=== PATIENT | male | born 1970 | race Caucasian/White ===

== ENCOUNTER → 2016-04-04 | Outpatient (CLI) | payer OTHER ==
[~2016-04-04] MED LIST: CELEXA10 MG PO; COZAAR 50 MG TA50 M2 PO; ELIQUIS5 MG PO; NICOTINE TRANSD21 M1 TRANSDERM
--- NOTE | ~2016-04-04 | 2DMMODE ---
[facility] [place] [address] 2 D/M-MODE ECHOCARDIOGRAM Name: DIMITRI GONZALEZ Room #: REG CL [facility]#: [id number] Admission: 04/04/16 Attend Phys: Kurtis Sarmiento MD Discharge: Date of : 72 Date of Service: 04/04/16 1024 Report #: [id number] THIS REPORT FOR: //name// Transthoracic Echocardiography Ordering physician: Kurtis Sarmiento Referring physician: Kurtis Sarmiento Emily G. Supervisor Warping Department: Suellen Rebollar Indications/History: Abbreviated echo for follow up of pulmonary embolism 01/2016. Hx: HTN BP: 150 / HR: 70bpm Height: 69in Weight: 269.4lb 90 Study data: M-mode, limited 2D, limited spectral Doppler, and color Doppler. Location: Echo laboratory. Routine. Image quality was adequate. The study was technically limited due to body habitus. 2D measurements Normal Normal LVID ED 56.3mm 36-57 IVS ED 10.5mm 6-11 LVID ES 38.5mm 23-40 LVPW ED 9.3mm 6-11 LA volume index 16-28 AoRoot diam ED 21-37 LVOT diameter 18-23 Findings: Left ventricle: The cavity size was normal. Wall thickness was normal. Systolic function was normal. The estimated ejection fraction was in the range of 55% to 60%. Wall motion was normal. Right ventricle: Difficult to visualize but appears to be at the upper limits of normal in size with normal function. Right atrium: The atrium was at the upper limits of normal in size. Left atrium: The atrium was normal in size. Aortic valve: Structurally normal valve. Doppler: There was no stenosis. No regurgitation. Peak velocity: 144.5cm/s (S). [address] [address] 2 D/M-MODE ECHOCARDIOGRAM Name: DIMITRI GONZALEZ Room #: REG [facility]#: [id number] Admission: 04/04/16 Attend Phys: Kurtis Sarmiento MD Discharge: Date of : 72 Date of Service: 04/04/16 1024 Report #: [id number] Mitral valve: Structurally normal valve. Doppler: There was no evidence for stenosis. Trivial regurgitation. Tricuspid valve: Structurally normal valve. Doppler: There was no evidence for stenosis. Trivial regurgitation. Regurgitant peak velocity: 266cm/s. Peak RV-RA gradient: 28mm Hg (S). Pulmonic valve: Structurally normal valve. Doppler: There was no evidence for stenosis. Trivial regurgitation. Pericardium: There was no pericardial effusion. Pulmonary artery: Systolic pressure was estimated to be 33mm Hg. Systemic veins: Inferior vena cava: The vessel was normal in size; the respirophasic diameter changes were in the normal range (= 50%). Conclusions 1. Left ventricle: The cavity size was normal. Wall thickness was normal. Systolic function was normal. The estimated ejection fraction was in the range of 55% to 60%. Wall motion was normal. 2. Aortic valve: Structurally normal valve. 3. Mitral valve: Structurally normal valve. Trivial regurgitation. 4. Pulmonic valve: Trivial regurgitation. 5. Tricuspid valve: Trivial regurgitation. 6. Pulmonary arteries: Systolic pressure was estimated to be 33mm Hg. <ELECTRONICALLY SIGNED> By: Kristian Camacho MD 04/04/16 1102 1024 1102 Kristian Camacho MD /kelvin
== END ==
LOC: CV 03-28 12:25 → EDSTATUS 03-28 12:28 → CV 03-28 14:27
DX: I26.99 Other pulmonary embolism without acute cor pulmonale (principal); I10 Essential (primary) hypertension

== ENCOUNTER → 2017-05-08 | Outpatient (CLI) | payer OTHER ==
--- NOTE | ~2017-05-08 | 2DMMODE ---
[facility] [address] [address] 2 D/M-MODE ECHOCARDIOGRAM Name: DIMITRI GONZALEZ Room #: REG [facility]#: [id number] Admission: 05/08/17 Attend Phys: Kurtis Sarmiento MD Discharge: Date of : 72 Date of Service: 05/08/17 1012 Report #: [id number] THIS REPORT FOR: //name// APPROVED REPORT Study performed: 05/08/2017 09:10:17 EXAM: Comprehensive 2D, Doppler, and color-flow Echocardiogram Patient Location: Echo lab Status: routine BSA: 2.38 HR: 96 bpm BP: 156/106 mmHg Rhythm: NSR Other Information Study Quality: FairAdequate Risk Factors: Cardiac Risk Factors: HTN Indications Pulmonary Hypertension 2D Dimensions LVEF(%): 51.74 (>50%) IVSd: 11.63 (7-11mm) LVOT Diam: 21.00 (18-24mm) LVDd: 38.86 mm PWd: 12.56 (7-11mm) Ascending Ao: 29.24 (22-36mm) LVDs: 28.75 (25-40mm) Left Atrium: 42.06 (27-40mm) Aortic Root: 30.11 mm Martinez's LVEF: 51.74 % Volumes Left Atrial Volume (Systole) Single Plane 4CH: 35.11 mL Aortic Valve AoV Peak Billy.: 1.13 m/s AO Peak Gr.: 5.11 mmHg LVOT Max P.03 mmHg LVOT Max V: 0.71 m/s PREMA Vmax: 2.20 cm2 [facility] [address] [address] 2 D/M-MODE ECHOCARDIOGRAM Name: DIMITRI GONZALEZ EMY Room #: REG CL [facility]#: [id number] Admission: 05/08/17 Attend Phys: Kurtis Sarmiento MD Discharge: Date of : 72 Date of Service: 05/08/17 1012 Report #: [id number] Mitral Valve E/A Ratio: 0.7 MV Decel. Time: 176.77 ms MV E Max Billy.: 0.48 m/s MV A Billy.: 0.68 m/s MV PHT: 51.26 ms IVRT: 43.83 ms TDI E/Lateral E': 8.00 E/Medial E': 12.00 Medial E' Billy.: 0.04 m/s Lateral E' Billy.: 0.06 m/s Pulmonary Valve PV Peak Billy.: 0.93 m/s PV Peak Gr.: 3.47 mmHg Left Ventricle The left ventricle is normal size. There is normal LV segmental wall motion. Mild concentric left ventricular hypertrophy. Left ventricular systolic function is normal. The left ventricular ejection fraction is within the normal range. LVEF is 55%. Grade I - abnormal relaxation pattern. Right Ventricle The right ventricle is normal size. The right ventricular systolic function is normal. Atria The left atrium size is normal. The right atrium size is normal. Aortic Valve The aortic valve is normal in structure. No aortic regurgitation is present. There is no aortic valvular stenosis. Mitral Valve The mitral valve is normal in structure. There is no mitral valve regurgitation noted. No evidence of mitral valve stenosis. Tricuspid Valve The tricuspid valve is normal in structure. There is no tricuspid valve regurgitation noted. Pulmonic Valve The pulmonary valve is normal in structure. Trace pulmonic regurgitation. [facility] [address] [place] [address] 2 D/M-MODE ECHOCARDIOGRAM Name: CARLOSDIMITRI Room #: REG [facility]#: [id number] Admission: 05/08/17 Attend Phys: Kurtis Sarmiento MD Discharge: Date of : 72 Date of Service: 05/08/17 1012 Report #: [id number] Great Vessels The aortic root is normal in size. The inferior vena cava is not visualized. Pericardium There is no pericardial effusion. <Conclusion> The left ventricle is normal size. LVEF is 55%. The aortic valve is normal in structure. The mitral valve is normal in structure. The tricuspid valve is normal in structure. The pulmonary valve is normal in structure. There is no pericardial effusion. <ELECTRONICALLY SIGNED> By: Kristian Camacho MD 05/08/17 1012 1012 1012 Kristian Camacho MD /INF
== END ==
LOC: CV 04-24 10:11
DX: I27.82 Chronic pulmonary embolism (principal); M79.89 Other specified soft tissue disorders; I27.20 Pulmonary hypertension, unspecified

== ENCOUNTER 2020-12-30 12:24 | Emergency (ER) | payer OTHER ==
[~2020-12-30] VITALS: Ht 175.3 cm; Wt 113.4 kg
[2020-12-30] MEDS ORDERED: ZYRTEC10 M5 PO (12:35)
[2020-12-30] MEDS ORDERED: NORCO5 PO ×2 (13:51→13:53)
[2020-12-30 14:06] VITALS: BP 150/90
== END 2020-12-30 14:06 | disposition home or self-care (01) ==
LOC: ER 12:24
DX: S82.434A Nondisplaced oblique fracture of shaft of right fibula, initial encounter for closed fracture (principal); S82.64XA Nondisplaced fracture of lateral malleolus of right fibula, initial encounter for closed fracture; I10 Essential (primary) hypertension; E11.9 Type 2 diabetes mellitus without complications; F17.210 Nicotine dependence, cigarettes, uncomplicated; Z79.899 Other long term (current) drug therapy; Z86.718 Personal history of other venous thrombosis and embolism; Z86.711 Personal history of pulmonary embolism; W10.8XXA Fall (on) (from) other stairs and steps, initial encounter; Y93.89 Activity, other specified; Y92.89 Other specified places as the place of occurrence of the external cause; Y99.8 Other external cause status